=== PATIENT | male | born 1965 | race Two or more races ===

== ENCOUNTER 2016-07-16 15:33 | Inpatient (IN) | payer OTHER ==
[~2016-07-16] VITALS: Ht 172.7 cm; Wt 72.6 kg
[2016-07-16 15:48] VITALS: BP 209/64
[2016-07-16] MEDS ORDERED: Metoclopramide 10mg/2ml Inj IVP ONE (16:00)
[2016-07-16 16:08] LABS: BASOPHILS % (AUTO) 0.9 % (0.0-2.0); EOSINOPHILS % (AUTO) 0.2 % (0.0-3.0); LYMPHOCYTES % (AUTO) 22.9 % (20.0-45.0); MEAN CORPUSCULAR HEMOGLOBIN 27.6 PG (27.0-31.0); MEAN CORPUSCULAR HGB CONC 32.7 G/DL (32.0-36.0); MEAN CORPUSCULAR VOLUME 84 FL (80-99); MEAN PLATELET VOLUME 6.3 FL (6.5-10.1); MONOCYTES % (AUTO) 2.7 % (1.0-10.0); NEUTROPHILS % (AUTO) 73.3 % (45.0-75.0); PLATELET COUNT 345 K/UL (150-450); RED BLOOD COUNT 5.05 M/UL (4.70-6.10); RED CELL DISTRIBUTION WIDTH 13.3 % (11.6-14.8); WHITE BLOOD COUNT 8.6 K/UL (4.8-10.8)
[2016-07-16] MEDS ORDERED: NKM (16:15)
[2016-07-16 16:33] LABS: TROPONIN I < 0.30 ng/mL (<=0.30)
[2016-07-16 16:38] LABS: ALANINE AMINOTRANSFERASE 15 U/L (3-41); ALBUMIN/GLOBULIN RATIO 1.6 (1.0-2.7); ANION GAP 18 (5-15); ASPARTATE AMINO TRANSFERASE 22 U/L (5-40); CALCIUM 7.6 mg/dL (8.6-10.2); CARBON DIOXIDE 20 mEQ/L (20-30); CHLORIDE 102 mEQ/L (98-107); CREATININE 0.6 mg/dL (0.7-1.2); GLOMERULAR FILTRATION RATE > 60 mL/min (>60); HEMOLYSIS 48; POTASSIUM 3.1 mEQ/L (3.4-4.9); SODIUM 140 mEQ/L (135-145)
--- NOTE | 2016-07-16 16:39 | Diagnostic Imaging Report ---
Indication: Shortness of breath Technique: One view of the chest Comparison: none Findings: Lungs and pleural spaces are clear. Heart size is normal. Impression: No acute process
[2016-07-16 16:49] LABS: CKMB < 1.5 ng/mL (< 6.7)
--- NOTE | 2016-07-16 17:19 | Emergency Room Report ---
History of Present Illness General Chief Complaint: General Complaint Source: Patient Present Illness HPI 50-year-old male presents ED complaining of dizziness and weakness x3 days. States his blood pressure is high. Systolic greater than 200. Denies any blurry vision, neck stiffness, nausea or vomiting. Denies chest pain or shortness of breath. Denies smoking or drug use. No other aggravating relieving factors. States he was told he had high blood pressure but has not been started on medication. Has not checked his blood pressure in many months now. Does not have a PMD. Denies any other associated symptom Allergies: Coded Allergies: No Known Allergies (Unverified , 07/16/16) Patient History Past Medical History: HTN Past Surgical History: none Pertinent Family History: none Social History: Denies: alcohol use, drug use, smoking Immunizations: UTD Reviewed Nursing Documentation: PMH: Agreed, PSxH: Agreed Nursing Documentation-PMH Past Medical History: No Stated History Review of Systems All Other Systems: negative except mentioned in HPI Physical Exam Vital Signs Date Time Temp Pulse Resp B/P Pulse Ox O2 Delivery O2 Flow Rate FiO2 07/16/16 15:35 97.5 58 16 212/108 98 Room Air Sp02 EP Interpretation: reviewed, normal General Appearance: no apparent distress, alert, GCS 15, non-toxic Head: normocephalic, atraumatic Eyes: bilateral eye PERRL, bilateral eye normal inspection ENT: hearing grossly normal, normal pharynx, no angioedema, normal voice Neck: full range of motion, supple/symm/no masses Respiratory: chest non-tender, lungs clear, normal breath sounds, speaking full sentences Cardiovascular #1: regular rate, rhythm, no edema Cardiovascular #2: 2+ carotid (R), 2+ carotid (L), 2+ radial (R), 2+ radial (L) , 2+ dorsalis pedis (R), 2+ dorsalis pedis (L) Gastrointestinal: normal bowel sounds, non tender, soft, non-distended, no guarding, no rebound Rectal: deferred Genitourinary: normal inspection, no CVA tenderness Musculoskeletal: back normal, gait/station normal, normal range of motion, non- tender Neurologic: alert, oriented x3, responsive, motor strength/tone normal, sensory intact, speech normal Psychiatric: judgement/insight normal, memory normal, mood/affect normal, no suicidal/homicidal ideation Reflexes: 3+ bicep (R), 3+ bicep (L), 3+ tricep (R), 3+ tricep (L), 3+ knee (R) , 3+ knee (L) Skin: normal color, no rash, warm/dry, well hydrated Lymphatic: no adenopathy Procedures Critical Care Time Critical Care Time i. I feel this is a highly complex case requiring extensive working including EKG/Rhythm strip, Xray/CT/US, Blood/urine lab work, repeat exams while in ED, and administration of strong opiates/narcotics for pain control, admission to hospital or close patient follow up. Total time: 30 min bedside evaluation and treatment excludes procedures (EKG). Reason for critical care: Hypertension urgency Possible complications: hypotension, hypertension, [place], shock, arrhythmias, metabolic acidosis, end organ damage, respiratory failure. Interventions: Labs, EKG, chest x-ray, CT. Ativan. Zofran. Hydralazine Course: Patient here with dizziness, elevated BP. EKG shows no ischemic changes , LVH. CT head unremarkable. Labs obtained. Given hydralazine, Ativan, Zofran. BP improved Consultations: nursing staff, EMS, family Performed by: Dr Alaniz Tolerated well condition = serious j. because of unstable vital signs this patient had a condition that could potentially threaten life or limb. I feel this is a critical patient who required my full attention while patient was considered critical. Total Critical Care Time excluding procedures was greater than 35 minutes Medical Decision Making Diagnostic Impression: Primary Impression: Hypertensive urgency ER Course Hospital Course 50-year-old male presents ED complaining of dizziness, elevated BP Differential diagnoses include: [place]/unstable angina, CVA/TIA, hypertensive urgency Clinical course Patient placed on stretcher. on cardiac surgeon. After initial history and physical I ordered labs, EKG, chest x-ray, CT Head labs reviewed- no leukocytosis, hemoglobin/hematocrit stable, electrolytes okay , troponins negative. Chest x-ray- unremarkable EKG - NSR, LVH noted CT head negative Patient given hydralazine, Ativan, Zofran. On reassessment BP improved. Case discussed with Dr. Doran and he agreed to accept the patient to his service for further care and support I. I feel this is a highly complex case requiring extensive working including EKG/Rhythm strip, Xray/CT/US, Blood/urine lab work, repeat exams while in ED, and administration of strong opiates/narcotics for pain control, admission to hospital or close patient follow up. Diagnosis - hypertensive urgency admitted to telemetry in serious condition Labs Test 07/16/16 15:44 07/16/16 16:56 White Blood Count 8.6 K/UL (4.8-10.8) Red Blood Count 5.05 M/UL (4.70-6.10) Hemoglobin 13.9 G/DL (14.2-18.0) Hematocrit 42.5 % (42.0-52.0) Mean Corpuscular Volume 84 FL (80-99) Mean Corpuscular Hemoglobin 27.6 PG (27.0-31.0) Mean Corpuscular Hemoglobin Concent 32.7 G/DL (32.0-36.0) Red Cell Distribution Width 13.3 % (11.6-14.8) Platelet Count 345 K/UL (150-450) Mean Platelet Volume 6.3 FL (6.5-10.1) Neutrophils (%) (Auto) 73.3 % (45.0-75.0) Lymphocytes (%) (Auto) 22.9 % (20.0-45.0) Monocytes (%) (Auto) 2.7 % (1.0-10.0) Eosinophils (%) (Auto) 0.2 % (0.0-3.0) Basophils (%) (Auto) 0.9 % (0.0-2.0) Sodium Level 140 mEQ/L (135-145) Potassium Level 3.1 mEQ/L (3.4-4.9) Chloride Level 102 mEQ/L (98-107) Carbon Dioxide Level 20 mEQ/L (20-30) Anion Gap 18 (5-15) Blood Urea Nitrogen 9 mg/dL (7-23) Creatinine 0.6 mg/dL (0.7-1.2) Estimat Glomerular Filtration Rate > 60 mL/min (>60) Glucose Level 145 mg/dL (74-106) Calcium Level 7.6 mg/dL (8.6-10.2) Total Bilirubin 0.4 mg/dL (0.0-1.2) Aspartate Amino Transf (AST/SGOT) 22 U/L (5-40) Alanine Aminotransferase (ALT/SGPT) 15 U/L (3-41) Alkaline Phosphatase 50 U/L (40-129) Total Creatine Kinase 63 U/L (38-174) Creatine Kinase MB < 1.5 ng/mL (< 6.7) Creatine Kinase MB Relative Index Troponin I < 0.30 ng/mL (<=0.30) Pro-B-Type Natriuretic Peptide 69 pg/mL (0-125) Total Protein 6.0 g/dL (6.6-8.7) Albumin 3.7 g/dL (3.5-5.2) Globulin 2.3 g/dL Albumin/Globulin Ratio 1.6 (1.0-2.7) EKG Diagnostic Results Rate: normal Rhythm: NSR ST Segments: other - LVH ASA given to the pt in ED: No Rhythm Strip Diag. Results EP Interpretation: yes Rhythm: NSR, no PVC's, no ectopy Chest X-Ray Diagnostic Results EP Interpretation: No Findings: no consolidation, no effusion, no pneumothorax, no acute cardiopulmonary disease Number of Views: 1 CT/MRI/US Diagnostic Results CT/MRI/US Diagnostic Results : Imaging Test Ordered: CT head Impression no acute process Last Vital Signs Date Time Temp Pulse Resp B/P Pulse Ox O2 Delivery O2 Flow Rate FiO2 07/16/16 17:08 220/92 07/16/16 15:48 97.9 60 27 100 Room Air Status: improved Disposition: ADMITTED INPATIENT Condition: Serious Referrals: RADU BARRERA (PCP) MARC ALANIZ M.D. Jul 16, 2016 17:19
[2016-07-16 17:36] LABS: KETONES,URINE 3+ (NEGATIVE); LEUKOCYTE ESTERASE ,URINE NEGATIVE (NEGATIVE); NITRITE,URINE NEGATIVE (NEGATIVE); PH,URINE 5 (4.5-8.0); PROTEIN,URINE 3+ (NEGATIVE); UROBILINOGEN,URINE NORMAL MG/DL (0.0-1.0)
[2016-07-16 17:37] LABS: APPEARANCE,URINE CLEAR
[2016-07-16 17:42] LABS: BACTERIA,URINE FEW /HPF; RBC,URINE 0-2 /HPF (0 - 0); WBC,URINE 0-2 /HPF (0 - 0)
[2016-07-16] MEDS ORDERED: LORazepam Inj 2mg/ml 1ml IV ONE (17:45)
[2016-07-16] MEDS ORDERED: Diazepam 10mg/2ml Inj IV ONE (17:45)
[2016-07-16 17:51] VITALS: BP 181/92
[2016-07-16] MEDS ORDERED: VALIUM2 MG ORAL (18:02)
[2016-07-16 18:43] VITALS: BP 158/90
[2016-07-16 19:00] VITALS: BP 160/107
--- NOTE | 2016-07-16 20:52 | History & Physical ---
History and Physical History & Physicial .[facility] # [id number] FLORA RAE Jul 16, 2016 20:52
[2016-07-16] MEDS: Meclizine 25mg tab ORAL SCH (22:16)
[2016-07-17] VITALS (7 sets, daily range): BP systolic 133–180; BP diastolic 57–108
--- NOTE | 2016-07-17 00:58 | History and Physical Report ---
DATE OF ADMISSION: 07/16/2016 CHIEF COMPLAINT: Vertigo, nausea, and vomiting. HISTORY OF PRESENT ILLNESS: This is a 50-year-old male, who started having severe dizziness yesterday. The patient could not function. He could get only relief when lying down, although even then he would still feel dizzy, but movement of his head was making it worse. He finally was brought into the emergency room via ambulance. His blood pressure was found to be 212/108 upon admission. The patient was admitted with hypertensive urgency. PAST MEDICAL HISTORY: The patient denies any previous history of hypertension. He has not seek any medical attention of any doctor. ALLERGIES: No known drug allergies. SOCIAL HISTORY: The patient smokes a pack of cigarettes every three days. He has been smoking for many years. He drinks occasionally. He smokes marijuana. 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 REVIEW OF SYSTEMS: As above. PHYSICAL EXAMINATION: GENERAL: The patient is a 50-year-old male, in no acute distress. VITAL SIGNS: Blood pressure 202/108, pulse 58, temperature 97.5 degrees, and respiratory rate is 16. HEENT: [place] conjunctivae. Anicteric sclerae. NECK: Supple. LUNGS: Clear to auscultation. HEART: S1 and S2 without murmurs or rubs. ABDOMEN: Soft and nontender. EXTREMITIES: No cyanosis or edema. LABORATORY FINDINGS: The CBC shows a WBC of 8.6, hematocrit is 42.5, hemoglobin is 13.9, and platelets of 245,000. Chemistry panel shows serum sodium 140, potassium 3.1, chloride 102, CO2 20, BUN is 9, creatinine 0.6. Blood sugar is 145. Troponin was negative. ASSESSMENT: This is a 50-year-old male, who was admitted with severe vertigo, nausea, vomiting, and also severe hypertension with hypertensive urgency. PLAN: The patient will be given amlodipine 5 mg daily. I will give the one dose now. The patient will be on IV fluids. Laboratories will be followed closely, specifically potassium and will be repleted as needed. The patient will be on antiemetics and Zofran. PT evaluation will be done. Ezekiel Doran M.D. DR: CRICKET JOB#: [id number] CC:
[2016-07-17] MEDS: Meclizine 25mg tab ORAL SCH ×3 (06:34→22:00)
[2016-07-17 07:37] LABS: ANION GAP 17 (5-15); CALCIUM 8.8 mg/dL (8.6-10.2); CARBON DIOXIDE 23 mEQ/L (20-30); CHLORIDE 98 mEQ/L (98-107); CREATININE 0.7 mg/dL (0.7-1.2); GLOMERULAR FILTRATION RATE > 60 mL/min (>60); HEMOLYSIS 10; POTASSIUM 3.8 mEQ/L (3.4-4.9); SODIUM 138 mEQ/L (135-145)
[2016-07-17] MEDS ORDERED: 1/2 NS 1000ml IV ONE (08:31)
--- NOTE | 2016-07-17 09:47 | General Progress Note ---
Assessment/Plan Problem List: (1) Hypertensive urgency ICD Codes: I16.0 - Hypertensive urgency SNOMED: 452501072 (2) Vertigo ICD Codes: R42 - Dizziness and giddiness SNOMED: 042537409 Assessment/Plan cont IVF cont Antivert Watch BP PT Subjective Allergies: Coded Allergies: No Known Allergies (Unverified , 07/16/16) Subjective feels somewhat better Objective Last 24 Hour Vital Signs Date Time Temp Pulse Resp B/P Pulse Ox O2 Delivery O2 Flow Rate FiO2 07/17/16 08:26 90 169/108 07/17/16 08:00 85 07/17/16 08:00 97.7 90 20 169/108 98 Room Air 07/17/16 04:09 98.5 88 20 157/89 96 Room Air 07/17/16 04:00 95 07/17/16 00:23 98.8 96 21 159/95 97 Room Air 07/17/16 00:00 98 07/16/16 20:22 95 160/91 07/16/16 20:00 91 07/16/16 19:00 97.5 101 18 160/107 98 Room Air 07/16/16 18:50 97.9 90 16 158/90 100 Room Air 07/16/16 18:43 97.9 90 16 158/90 100 Room Air 07/16/16 17:51 97.9 92 18 181/92 100 Room Air 07/16/16 17:08 220/92 07/16/16 15:48 97.9 60 27 209/64 100 Room Air 07/16/16 15:35 97.5 58 16 212/108 98 Room Air Intake and Output 07/16/16 07/17/16 19:00 07:00 Intake Total 1136 ml Output Total 100 ml 350 ml Balance -100 ml 786 ml Intake Oral 480 ml IV Total 656 ml Output Urine Total 100 ml 350 ml # Voids 1 3 Laboratory Tests 07/16/16 15:44: White Blood Count 8.6, Red Blood Count 5.05, Hemoglobin 13.9L, Hematocrit 42.5, Mean Corpuscular Volume 84, Mean Corpuscular Hemoglobin 27.6, Mean Corpuscular Hemoglobin Concent 32.7, Red Cell Distribution Width 13.3, Platelet Count 345, Mean Platelet Volume 6.3L, Neutrophils (%) (Auto) 73.3, Lymphocytes (%) (Auto) 22.9, Monocytes (%) (Auto) 2.7, Eosinophils (%) (Auto) 0.2, Basophils (%) (Auto ) 0.9, Sodium Level 140, Potassium Level 3.1L, Chloride Level 102, Carbon Dioxide Level 20, Anion Gap 18H, Blood Urea Nitrogen 9, Creatinine 0.6L, Estimat Glomerular Filtration Rate > 60, Glucose Level 145H, Calcium Level 7.6L , Total Bilirubin 0.4, Aspartate Amino Transf (AST/SGOT) 22, Alanine Aminotransferase (ALT/SGPT) 15, Alkaline Phosphatase 50, Total Creatine Kinase 63, Creatine Kinase MB < 1.5, Creatine Kinase MB Relative Index , Troponin I < 0.30, Pro-B-Type Natriuretic Peptide 69, Total Protein 6.0L, Albumin 3.7, Globulin 2.3, Albumin/Globulin Ratio 1.6 07/16/16 16:56: Urine Color Yellow, Urine Appearance Clear, Urine pH 5, Urine Specific [place] 1.025, Urine Protein 3+H, Urine Glucose (UA) Negative, Urine Ketones 3+H, Urine Occult Blood 2+H, Urine Nitrite Negative, Urine Bilirubin Negative, Urine Urobilinogen Normal, Urine Leukocyte Esterase Negative, Urine RBC 0-2H, Urine WBC 0-2, Urine Squamous Epithelial Cells None, Urine Bacteria Few, Urine Opiates Screen Negative, Urine Barbiturates Screen Negative, Phencyclidine (PCP ) Screen Negative, Urine Amphetamines Screen Negative, Urine Benzodiazepines Screen Negative, Urine Cocaine Screen Negative, Urine Marijuana (THC) Screen PositiveH 07/17/16 06:15: Sodium Level 138, Potassium Level 3.8, Chloride Level 98, Carbon Dioxide Level 23, Anion Gap 17H, Blood Urea Nitrogen 8, Creatinine 0.7, Estimat Glomerular Filtration Rate > 60, Glucose Level 87, Calcium Level 8.8, Magnesium Level 2.0 Height (Feet): 5 Height (Inches): 8.00 Weight (Pounds): 160 Cardiovascular: normal rate Respiratory/Chest: lungs clear Edema: no edema noted FLORA Llanos Jul 17, 2016 09:47
[2016-07-18 00:08] VITALS: BP 168/82
[2016-07-18 04:10] VITALS: BP 159/95
[2016-07-18] MEDS: Meclizine 25mg tab ORAL SCH ×3 (05:52→21:08)
[2016-07-18 07:44] VITALS: BP 164/107
[2016-07-18 11:24] VITALS: BP 176/110
--- NOTE | 2016-07-18 14:29 | General Progress Note ---
Assessment/Plan Problem List: (1) Hypertensive urgency ICD Codes: I16.0 - Hypertensive urgency SNOMED: 898483571 (2) Vertigo ICD Codes: R42 - Dizziness and giddiness SNOMED: 478669656 Assessment/Plan Dc IVF cont Antivert increase Amlodipine Add chlorthalidone PT discussed with sister Subjective Allergies: Coded Allergies: No Known Allergies (Unverified , 07/16/16) Subjective feels better Objective Last 24 Hour Vital Signs Date Time Temp Pulse Resp B/P Pulse Ox O2 Delivery O2 Flow Rate FiO2 07/18/16 12:00 60 07/18/16 11:24 97.5 79 20 176/110 99 Room Air 07/18/16 08:52 85 164/107 07/18/16 08:00 90 07/18/16 07:44 97.7 85 20 164/107 98 Room Air 07/18/16 04:10 97.6 79 21 159/95 95 Room Air 07/18/16 04:00 67 07/18/16 00:08 98.8 83 20 168/82 97 Room Air 07/18/16 00:00 76 07/17/16 20:00 101 07/17/16 20:00 97.8 67 21 165/95 97 Room Air 07/17/16 16:57 97.7 07/17/16 16:00 97.7 78 20 133/57 98 Room Air 07/17/16 16:00 83 Intake and Output 07/17/16 07/18/16 19:00 07:00 Intake Total 815 ml 1300 ml Output Total 700 ml 800 ml Balance 115 ml 500 ml Intake Oral 440 ml 450 ml IV Total 375 ml 850 ml Output Urine Total 700 ml 800 ml # Voids 1 3 # Bowel Movements 2 Height (Feet): 5 Height (Inches): 8.00 Weight (Pounds): 160 Cardiovascular: normal rate Respiratory/Chest: lungs clear FLORA RAE Jul 18, 2016 14:29
[2016-07-18 16:00] VITALS: BP 184/106
[2016-07-18 20:00] VITALS: BP 187/117
[2016-07-19 00:33] VITALS: BP 174/109
[2016-07-19 04:08] VITALS: BP 167/115
[2016-07-19] MEDS: Meclizine 25mg tab ORAL SCH (06:10)
[2016-07-19 07:58] VITALS: BP 170/106
--- NOTE | 2016-07-19 08:36 | Diagnostic Imaging Report ---
Indication: Dizziness Technique: Continuous helical CT scanning of the head was performed without intravenous contrast material. Axial and coronal 5 mm sections were generated. Radiation dose was minimized using automated exposure control Dose: Total Dose Length Product - DLP [address] Dose Index - CTDIvol(s) 70.38 mGy. Comparison: Findings: The ventricular system is normal in size and configuration. There is no shift of midline structures. No abnormal extra-axial fluid collections are noted. There is no evidence of intracerebral bleeding. No other abnormal high or low density areas are noted within the brain. There is minimal ethmoid sinus mucosal disease. Impression: Normal CT scan of the head without contrast material. The CT scanner at [facility] is accredited by the [employer] and the scans are performed using protocols designed to limit radiation exposure to as low as reasonably achievable to attain images of sufficient resolution adequate for diagnostic evaluation.
[2016-07-19 09:28] VITALS: BP 170/106
[2016-07-19] MEDS ORDERED: MECLIZINE HCL25 MG ORAL (09:58)
[2016-07-19] MEDS ORDERED: CHLORTHALIDONE25 MG ORAL (09:58)
[2016-07-19] MEDS ORDERED: NORVASC5 MG ORAL (09:58)
--- NOTE | 2016-07-19 10:03 | Consultation ---
Consult Note Assessment/Plan Dc dictated #[id number] FLORA RAE Jul 19, 2016 10:03
[2016-07-19] MEDS ORDERED: LEXAPRO10 MG ORAL (10:36)
--- NOTE | 2016-07-19 22:18 | Discharge Summary ---
DATE OF ADMISSION: 07/16/2016 DATE OF DISCHARGE: 07/19/2016 CHIEF COMPLAINT: Vertigo. HISTORY: This is a very pleasant 50-year-old male, who was admitted with nausea, vomiting and vertigo. Also he was found to have a high blood pressure 212/108 upon admission and diagnosis of hypertensive urgency. HOSPITAL COURSE: The patient was started on Antivert, IV fluids for his blood pressure. He was started on amlodipine 5 mg daily. Amlodipine was increased to 5 mg twice a day and also chlorthalidone was added. His blood pressure still remained elevated at 170/106, but it was felt that it was adequate to control for the time being until later when the patient would need to have a repeat blood pressure check and decrease the medications as needed. The patient's dizziness improved significantly and finally he was discharged home in stable condition. He is supposed to follow up with me in the office to address his blood pressure and to see if he can go back to work. He was still on Antivert at the time of discharge. DISCHARGE DIAGNOSES: 1. Vertigo, likely as a vestibular dysfunction. 2. Hypertensive urgency. Ezekiel Doran M.D. DR: ESE JOB#: [id number] CC:
--- NOTE | 2016-07-21 23:45 | Cardiology Report ---
APPROVED REPORT EKG Measurement Heart [id number] Normal sinus rhythm Voltage criteria for left ventricular hypertrophy Abnormal ECG
== END 2016-07-19 11:35 | disposition home or self-care (01) | DRG 305 ==
LOC: EDBD 15:33 → EMR 16:26 → 2E 17:32 → EDBEDREQ 18:25
DX: I16.0 Hypertensive urgency (principal); F17.200 Nicotine dependence, unspecified, uncomplicated; R42 Dizziness and giddiness
CPT/HCPCS: 36415; 70450; 71010; 80048; 80053; 80300; 81003; 82550; 82553; 83735; 83880; 84484; 85025; 93005; J2405; J2765; J8499

== ENCOUNTER 2017-02-03 10:28 | Outpatient (CLI) | payer OTHER ==
[~2017-02-03 10:28] MED LIST: CHLORTHALIDONE25 MG ORAL; LEXAPRO10 MG ORAL; MECLIZINE HCL25 MG ORAL; NKM; NORVASC5 MG ORAL; VALIUM2 MG ORAL
[2017-02-03 10:53] LABS: BASOPHILS % (AUTO) 1.1 % (0.0-2.0); LYMPHOCYTES % (AUTO) 32.5 % (20.0-45.0); MEAN CORPUSCULAR HEMOGLOBIN 28.7 PG (27.0-31.0); MEAN CORPUSCULAR HGB CONC 33.8 G/DL (32.0-36.0); MEAN CORPUSCULAR VOLUME 85 FL (80-99); MONOCYTES % (AUTO) 7.6 % (1.0-10.0); NEUTROPHILS % (AUTO) 56.7 % (45.0-75.0); PLATELET COUNT 413 K/UL (150-450); RED CELL DISTRIBUTION WIDTH 13.5 % (11.6-14.8); WHITE BLOOD COUNT 6.3 K/UL (4.8-10.8)
[2017-02-03 11:29] LABS: PSA TOTAL 1.5 ng/mL (< 3.5)
[2017-02-03 11:40] LABS: ALANINE AMINOTRANSFERASE 29 U/L (3-41); ALBUMIN/GLOBULIN RATIO 1.6 (1.0-2.7); ANION GAP 12 (5-15); ASPARTATE AMINO TRANSFERASE 22 U/L (5-40); CALCIUM 9.4 mg/dL (8.6-10.2); CARBON DIOXIDE 30 mEQ/L (20-30); CHLORIDE 98 mEQ/L (98-107); CHOLESTEROL 192 mg/dL (< 200); CHOLESTEROL/HDL RATIO 3.2 (3.3-4.4); CREATININE 0.8 mg/dL (0.7-1.2); GLOMERULAR FILTRATION RATE > 60 mL/min (>60); HEMOLYSIS 3; LDL CHOLESTEROL (CALC.) 114 mg/dL (60-99); POTASSIUM 3.6 mEQ/L (3.4-4.9); SODIUM 140 mEQ/L (135-145); TOTAL PROTEIN 7.3 g/dL (6.6-8.7)
== END 2017-02-03 12:28 | disposition home or self-care (01) ==
LOC: LAB 10:28
DX: I10 Essential (primary) hypertension (principal)
CPT/HCPCS: 36415; 80053; 80061; 84153; 85025

== ENCOUNTER 2017-08-08 12:07 | Emergency (ER) | payer OTHER ==
[~2017-08-08] VITALS: Ht 160 cm; Wt 63.5 kg
[2017-08-08] MEDS ORDERED: Bacitracin Oint UD TOPIC ONE (13:15)
--- NOTE | 2017-08-08 13:26 | Emergency Room Report ---
History of Present Illness General Chief Complaint: Multiple Trauma/Fall Source: Patient Present Illness HPI 51 YO Male presents to the ED c/o 09/29 in severity left knee pain with abrasion s/p syncopal episode. Pain exacerbated with palpation. Patient states that he had just gotten up from his desk and walked down the [place] to the elevator and just before getting into the elevator is 1 syncopal episode occurred. Patient denies precipitating symptoms such as dizziness or lightheadedness. Patient denies nausea, vomiting.or diarrhea. denies abdominal pain. denies significant cardiac hx or hx of sudden in his family. Patient states that this happened once in the past and he was evaluated for which is uneventful. Pt. denies fatigue, hx of bleeding or anemia. Pt. reports only PMHx of HTN. Denies CP, Palpitations, LOC, AMS, Changes in Vision, Sensation, paresthesias, or a sudden severe headache. Allergies: Coded Allergies: No Known Allergies (Unverified , 07/16/16) Patient History Past Medical History: see triage record Past Surgical History: none Pertinent Family History: none Reviewed Nursing Documentation: PMH: Agreed, PSxH: Agreed Nursing Documentation-PMH Past Medical History: No History, Except For Hx Hypertension: Yes Hx Cancer: No Hx Gastrointestinal Problems: No Hx Neurological Problems: No Review of Systems All Other Systems: negative except mentioned in HPI Physical Exam Vital Signs Date Time Temp Pulse Resp B/P (MAP) Pulse Ox O2 Delivery O2 Flow Rate FiO2 08/08/17 12:23 98.1 81 18 147/89 95 Room Air 98.1 Sp02 EP Interpretation: reviewed, normal General Appearance: no apparent distress, alert, GCS 15, non-toxic Head: normocephalic, atraumatic Eyes: bilateral eye normal inspection, bilateral eye PERRL ENT: hearing grossly normal, normal voice Neck: full range of motion, no bony tend Respiratory: chest non-tender, lungs clear, normal breath sounds, no respiratory distress, no wheezing, speaking full sentences Cardiovascular #1: regular rate, rhythm, no edema, normal capillary refill Gastrointestinal: non tender, soft Musculoskeletal: back normal, gait/station normal, normal range of motion, tender - TTP to the anterior Left knee, abrasion noted. FROM , no increased laxity, able to weight bear. Neurologic: alert, oriented x3, responsive, motor strength/tone normal, sensory intact, speech normal, grossly normal Psychiatric: judgement/insight normal Skin: normal color, no rash, warm/dry, well hydrated, abrasions - anterior left knee. Lymphatic: no adenopathy Medical Decision Making PA Attestation Dr. Mccabe is my supervising Physician whom patient management has been discussed with. Diagnostic Impression: Primary Impression: Syncope Qualified Codes: R55 - Syncope and collapse Additional Impressions: Knee abrasion Qualified Codes: S80.212A - Abrasion, left knee, initial encounter Knee pain, left Qualified Codes: M25.562 - Pain in left knee ER Course 51 YO Male presents to the ED c/o 09/29 in severity left knee pain with abrasion s/p syncopal episode. Pain exacerbated with palpation. Patient states that he had just gotten up from his desk and walked down the [place] to the elevator and just before getting into the elevator is 1 syncopal episode occurred. Patient denies precipitating symptoms such as dizziness or lightheadedness. Patient denies nausea, vomiting.or diarrhea. denies abdominal pain. denies significant cardiac hx or hx of sudden in his family. Patient states that this happened once in the past and he was evaluated for which is uneventful. Pt. denies fatigue, hx of bleeding or anemia. Pt. reports only PMHx of HTN. Denies CP, Palpitations, LOC, AMS, Changes in Vision, Sensation, paresthesias, or a sudden severe headache. Ddx considered but are not limited to dysrhythmia, hypoglycemia, hypovolemia, , intracranial process, vasovagal , contusion, abrasions, fracture/ dislocation just to name a few. Vital signs: are WNL, pt. is afebrile H&PE are most consistent with hx of syncopal episode and knee contusion with abrasion. No current symptoms other than knee tenderness, no obvious head injury , normal neurological exam. ORDERS: -Accu Check: 84 -12-lead EK NSR -Orthostatic: Normal INTERVENTIONS: - wound cleaning and application of bacitracin. PT. reports other than knee pain feeling fine, pt. is stable for close outpatient follow up . gave strict ED return precautions. DISCHARGE: At this time pt. is stable for d/c to home. Will provide printed patient care instructions, and any necessary prescriptions. Care plan and follow up instructions have been discussed with the patient prior to discharge. EKG Diagnostic Results EP Interpretation: Dr. Mccabe Rate: normal - 64 Rhythm: NSR ST Segments: no acute changes ASA given to the pt in ED: No PA Scribe Text This Interpretation was scribed by SHYAM Crowley. Other X-Ray Diagnostic Results Other X-Ray Diagnostic Results : X-Ray ordered: Left knee # of Views/Limited Vs Complete: 3 View Indication: Pain PA Xray: Interpretation reviewed, by supervising MD, and agrees with findings. Interpretation: no dislocation, no soft tissue swelling, no fractures Impression: No acute disease Electronically Signed by: Elidia Crowley PA-C Last Vital Signs Date Time Temp Pulse Resp B/P (MAP) Pulse Ox O2 Delivery O2 Flow Rate FiO2 08/08/17 12:23 98.1 81 18 147/89 95 Room Air 98.1 Disposition: HOME, SELF-CARE Condition: Stable Scripts Bacitracin/Polymyxin B Sulfate (BACITRACIN-POLYMYXIN OINTMENT) 28.35 Gm Oint...g. 1 APPLIC TP BID, #28.3 GM Prov: Elidia Crowley 08/08/17 Acetaminophen* (TYLENOL EXTRA STRENGTH*) 500 Mg Tablet 500 MG ORAL Q6H, #20 TAB 0 Refills Prov: Elidia Crowley 08/08/17 Patient Instructions: Syncope, Ubrz-dv-Poun Additional Instructions: Take medications as directed. Follow up with a Primary Care Provider within 3 days, even if your symptoms have resolved. let your primary care provider know that you had a syncopal episode. --Please review list of primary care clinics, if you do not already have a primary care provider. You may need technical maintenance technician evaluation. Return sooner to ED if new symptoms occur, or current symptoms become worse. - Please note that this Emergency Department Report was dictated using [employer]/prosthetic practitioner technology software, occasionally this can lead to erroneous entry secondary to interpretation by the dictation equipment. Elidia Crowley Aug 08, 2017 13:26
[2017-08-08 13:37] VITALS: BP_SYST 137; BP_SYST 145; BP_DIAS 88; BP_DIAS 93
[2017-08-08] MEDS ORDERED: TYLENOL EXTRA500 MG ORAL (13:56)
[2017-08-08] MEDS ORDERED: BACITRACIN-P28.35 GM TP (13:56)
[2017-08-08 14:11] VITALS: BP 137/88
[2017-08-08 14:13] VITALS: BP 137/88
--- NOTE | 2017-08-08 17:47 | Diagnostic Imaging Report ---
Indication: Knee pain Technique: 3 views of the left knee Comparison: None Findings: There is a small superior pole patellar osteophyte. Bones are somewhat osteoporotic. No acute fractures. No dislocations. Impression: Possible osteoporotic change. Correlate with clinical history and findings No acute bony trauma Minimal degenerative changes as described
--- NOTE | 2017-08-09 18:37 | Cardiology Report ---
APPROVED REPORT EKG Measurement Heart [id number] Normal sinus rhythm Moderate voltage criteria for LVH, may be normal variant Borderline ECG
== END 2017-08-08 14:13 | disposition home or self-care (01) ==
LOC: EMR 13:03
DX: S80.212A Abrasion, left knee, initial encounter (principal); R55 Syncope and collapse; I10 Essential (primary) hypertension; M25.562 Pain in left knee; W18.39XA Other fall on same level, initial encounter; Y92.9 Unspecified place or not applicable
CPT/HCPCS: 82962; 93005; 99284

== ENCOUNTER 2019-05-15 08:24 | Outpatient (CLI) | payer OTHER ==
[~2019-05-15 08:24] MED LIST changes: +BACITRACIN-P28.35 GM TP; +TYLENOL EXTRA500 MG ORAL
[2019-05-15 08:45] LABS: APPEARANCE,URINE CLEAR; BILIRUBIN, URINE NEGATIVE (NEGATIVE); COLOR,URINE PALE YELLOW; GLUCOSE, URINE (UA) NEGATIVE (NEGATIVE); KETONES,URINE NEGATIVE (NEGATIVE); LEUKOCYTE ESTERASE ,URINE NEGATIVE (NEGATIVE); NITRITE,URINE NEGATIVE (NEGATIVE); PH,URINE 5 (4.5-8.0); PROTEIN,URINE NEGATIVE (NEGATIVE); UROBILINOGEN,URINE NORMAL MG/DL (0.0-1.0)
[2019-05-15 09:22] LABS: BASOPHILS % (AUTO) 1.2 % (0.0-2.0); EOSINOPHILS % (AUTO) 2.5 % (0.0-3.0); HEMATOCRIT 44.5 % (42.0-52.0); HEMOGLOBIN 14.6 G/DL (14.2-18.0); LYMPHOCYTES % (AUTO) 35.1 % (20.0-45.0); MEAN CORPUSCULAR VOLUME 83 FL (80-99); MONOCYTES % (AUTO) 6.3 % (1.0-10.0); PLATELET COUNT 439 K/UL (150-450); RED BLOOD COUNT 5.39 M/UL (4.70-6.10); RED CELL DISTRIBUTION WIDTH 13.1 % (11.6-14.8); WHITE BLOOD COUNT 5.8 K/UL (4.8-10.8)
[2019-05-15 09:38] LABS: ALANINE AMINOTRANSFERASE 28 U/L (12-78); ALBUMIN 3.9 G/DL (3.4-5.0); ALKALINE PHOSPHATASE 60 U/L (46-116); ANION GAP 7 mmol/L (5-15); ASPARTATE AMINO TRANSFERASE 15 U/L (15-37); BILIRUBIN,TOTAL 0.3 MG/DL (0.2-1.0); BLOOD UREA NITROGEN 14 mg/dL (7-18); CALCIUM 9.3 MG/DL (8.5-10.1); CARBON DIOXIDE 33 MMOL/L (21-32); CHLORIDE 103 MMOL/L (98-107); CHOLESTEROL 179 MG/DL (< 200); CREATININE 0.8 MG/DL (0.55-1.30); HDL CHOLESTEROL 47 MG/DL (40-60); POTASSIUM 3.4 MMOL/L (3.5-5.1); SODIUM 143 MMOL/L (136-145); TRIGLYCERIDES 118 MG/DL (30-150)
== END 2019-05-15 10:24 | disposition home or self-care (01) ==
LOC: LAB 08:24
DX: I10 Essential (primary) hypertension (principal)
CPT/HCPCS: 36415; 80053; 80061; 81003; 83036; 84443; 85025

== ENCOUNTER → 2019-06-21 | Day surgery (SDC) | payer OTHER ==
[~2019-06-21] VITALS: Ht 160 cm; Wt 61.2 kg
[2019-06-21] VITALS (8 sets, daily range): BP systolic 118–135; BP diastolic 67–89
[~2019-06-21] MED LIST changes: +AMLODIPINE BESY10 MG ORAL; +LR 1000ml 1,000 ML IVLG SCH; +LR 1000ml ONE; +Midazolam 2mg/2ml Inj ONE; +Propofol 200mg/20ml IV ONE; +fentaNYL 100 mcg/2 mL IV ONE; +fentaNYL 100 mcg/2 mL IV PRN
--- NOTE | 2019-06-21 08:34 | Anethesia Preoperative Eval ---
Anesthesia Pre-op PMH/ROS General Date of Evaluation: Jun 21, 2019 Time of Evaluation: 08:31 Anesthesiologist: Tyler ASA Score: ASA 2 Mallampati Score Class I : Soft palate, uvula, fauces, pillars visible Class II: Soft palate, uvula, fauces visible Class III: Soft palate, base of uvula visible Class IV: Only hard plate visible Mallampati Classification: Class II Surgeon: Benita Diagnosis: Abdominal pain Surgical Procedure: Colonoscopy Anesthesia History: none Family History: no anesthesia problems Allergies: Coded Allergies: CODEINE (Verified Adverse Reaction, Severe, vomiting, 06/21/19) Medications: see eMAR Patient NPO?: Yes Past Medical History Cardiovascular: Reports: HTN; Denies: CAD, IL, valve dz, arrhythmia, other Pulmonary: Denies: asthma, COPD, LAURIE, other Gastrointestinal/Genitourinary: Reports: GERD; Denies: CRI, ESRD, other Neurologic/Psychiatric: Denies: dementia, CVA, depression/anxiety, TIA, other Endocrine: Denies: DM, hypothyroidism, steroids, other HEENT: Denies: cataract (L), cataract (R), glaucoma, TEJON (L), TEJON (R), other Hematology/Immune: Denies: anemia, DVT, bleeding disorder, other Musculoskeletal/Integumentary: Denies: OA, RA, DJD, DDD, edema, other PMH Narrative: as above PSxH Narrative: See chart Anesthesia Pre-op Phys. Exam Physician Exam Last Vital Signs Date Time Temp Pulse Resp B/P (MAP) Pulse Ox O2 Delivery O2 Flow Rate FiO2 06/21/19 08:16 Room Air 06/21/19 08:14 97.7 73 18 135/89 98 Constitutional: NAD Neurologic: CN 2-12 intact Cardiovascular: RRR, no M/R/G Respiratory: CTA Gastrointestinal: S/NT/ND Airway Exam Mallampati Score: Class II MO: full Neck: flexible` ROM: full Teeth: intact Dentures: no upper, no lower Anesthesia Pre-op A/P Risk Assessment & Plan Assessment: ASA 2 Plan: MAC Status Change Before Surgery: No Terry Scott MD Jun 21, 2019 08:34
--- NOTE | 2019-06-21 09:15 | Pre-Procedure Note/Attestation ---
Pre-Procedure Note/Attestation Complete Prior to Procedure Planned Procedure: not applicable Procedure Narrative: colon Indications for Procedure Pre-Operative Diagnosis: screen Attestation I attest that I discussed the nature of the procedure; its benefits; risks and complications; and alternatives (and the risks and benefits of such alternatives ), prior to the procedure, with the patient (or the patient's legal promotional representative). I attest that, if there was a reasonable possibility of needing a blood transfusion, the patient (or the patient's legal promotional representative) was given the [facility] standardized written summary, pursuant to the Danny Nav Blood Safety Act ([place] Health and Safety Code # 1645, as amended). I attest that I re-evaluated the patient just prior to the surgery and that there has been no change in the patient's H&P, except as documented below: Adilene Mohamud MD Jun 21, 2019 09:15
--- NOTE | 2019-06-21 09:15 | Short Stay Surgery H&P ---
History of Present Illness History of Present Illness Chief Complaint see typed H&P HPI Scooby Mcgowan is a 53 year old male who was admitted on for Colon Screening Patient History Allergies: Coded Allergies: CODEINE (Verified Adverse Reaction, Severe, vomiting, 06/21/19) Medication History Scheduled Amlodipine Besylate* (Amlodipine Besylate*), 10 MG ORAL DAILY, (Reported) Chlorthalidone* (Chlorthalidone*), 25 MG ORAL DAILY Discontinued Medications Acetaminophen* (Tylenol Extra Strength*), 500 MG ORAL Q6H Discontinued Reason: Pt stopped taking med Amlodipine Besylate (Norvasc), 5 MG ORAL Q12HR Discontinued Reason: Pt stopped taking med Bacitracin/Polymyxin B Sulfate (Bacitracin-Polymyxin Ointment), 1 APPLIC TP BID Discontinued Reason: Pt stopped taking med Escitalopram Oxalate* (Lexapro*), 10 MG ORAL DAILY, (Reported) Discontinued Reason: Pt stopped taking med Meclizine Hcl* (Meclizine*), 25 MG ORAL EVERY 8 HOURS Discontinued Reason: Pt stopped taking med Physical Exam Vital Signs Last Vital Signs Date Time Temp Pulse Resp B/P (MAP) Pulse Ox O2 Delivery O2 Flow Rate FiO2 06/21/19 08:16 Room Air 06/21/19 08:14 97.7 73 18 135/89 98 Plan Attestation Are the patient's medical conditions optimized for surgery? Adilene Mohamud MD Jun 21, 2019 09:15
--- NOTE | 2019-06-21 09:59 | Immediate Post-Op Evaluation ---
Immediate Post-Op Evalulation Immediate Post-Op Evalulation Procedure: Colonoscopy polypectomy Date of Evaluation: Jun 21, 2019 Time of Evaluation: 09:57 IV Fluids: 700 Blood Products: none Estimated Blood Loss: none Urinary Output: none Blood Pressure Systolic: 126 Blood Pressure Diastolic: 74 Pulse Rate: 68 Respiratory Rate: 20 O2 Sat by Pulse Oximetry: 99 Temperature (Fahrenheit): 97.4 Pain Score (1-10): 1 Nausea: No Vomiting: No Complications none Patient Status: awake, patent, none Hydration Status: adequate Terry Scott MD Jun 21, 2019 09:58
--- NOTE | 2019-06-21 10:23 | 48 Hour Post Anesthesia Eval ---
Post Anesthesia Evaluation Procedure: Colonoscopy polypectomy Date of Evaluation: Jun 21, 2019 Time of Evaluation: 10:21 Blood Pressure Systolic: 132 0: 58 Pulse Rate: 74 Respiratory Rate: 20 Temperature (Fahrenheit): 97.6 O2 Sat by Pulse Oximetry: 98 Airway: patent Nausea: No Vomiting: No Pain Intensity: 1 Hydration Status: adequate Cardiopulmonary Status: stable Mental Status/LOC: patient returned to baseline Follow-up Care/Observations: n/a Post-Anesthesia Complications: none Follow-up care needed: ready to discharge Terry Scott MD Jun 21, 2019 10:23
--- NOTE | 2019-06-21 10:57 | Endoscopy Procedure Note ---
Endoscopy Procedure Note General Indication for Procedure: screen Procedures Performed: colonoscopy Operative Findings/Diagnosis: colon polypx2, dim and 1. Specimen: yes Anesthesia Anesthesiologist: Sumit Anesthesia: MAC Inserted Devices Implant(s) used?: No GI Core Measures 50 yrs or older w/o bx or poly: No 10yrs. F/U recommended: No If not recommended, why?: Above average risk 18 years or older w/prev. colo: No <3yrs. since last colonoscopy: No Med reason:<3 yrs.: System Reason:<3 yrs.: Last colonoscopy >= to 3yrs: Yes Adilene Mohamud MD Jun 21, 2019 10:57
--- NOTE | 2019-06-21 10:58 | Brief Operative Note ---
Immediate Post Operative Note Operative Note Chief Complaint: screen Pre-op Diagnosis: screen Procedure: colon polyps Post-op Diagnosis: polyps Surgeon: mika Anesthesiologist: lonnie Specimen: yes Complications: none Condition: stable Fluids: see aneshesia Implant(s) used?: No Adilene Mohamud MD Jun 21, 2019 10:58
--- NOTE | 2019-06-21 18:30 | Operative Note - Dictated ---
PROCEDURE: Screening colonoscopy. SURGEON: Adilene Mohamud M.D. ANESTHESIA: Please see the separate anesthesiologist notes for details. PRE-ENDOSCOPIC DIAGNOSIS: Screening colonoscopy. POST-ENDOSCOPIC DIAGNOSES: 1. Normal terminal ileum to about 5 cm. 2. A 1.5 cm pedunculated polyp with a short stalk seen in the descending colon at 35 cm. 3. The above polyp was injected with saline and then a hot snare polypectomy was done and the specimen was removed. 4. Biopsies of the base of the polyp to remove a small amount of residual polyp like tissue. 5. A diminutive cystic polyp in the descending colon at 35 cm status post biopsy removal. 6. Mild sigmoid diverticulosis. 7. Anal papilla felt on examination and confirmed on retroflexed view of the rectum. 8. Status post Brittany ink injection in the descending colon at 35 cm. DESCRIPTION OF PROCEDURE: The procedure, its risks, indications, alternatives, and possible complications were explained to the patient and informed consent was obtained. The patient was then sedated in the left lateral decubitus position and a rectal exam was done, which revealed the small polypoid anal lesion. The colonoscope was then introduced per rectum and retroflexed view of the rectum revealed a small polypoid hypertrophic papilla. The colonoscope was advanced all the way to 5 cm into the terminal ileum. The terminal ileum and the right colon were normal. In the descending colon at 75 cm, there was a pedunculated 1.5 cm polyp on a short stalk, which was first injected with saline to raise it and then removed with a snare polypectomy. There was a very small amount of polyp like tissue noted at the base. The excised polyp was removed and placed in the container jar and the colonoscope was reintroduced into the rectum and advanced to 35 cm catherine. The base of the polypectomy site was biopsied and made clear of any remaining tissue. All specimens were sent in the same bottle to pathology. A few centimeters away from this main polyp, there was a much smaller diminutive sister polyp which was removed with a biopsy forceps and placed in a separate jar. Brittany ink was injected across the polypectomy sites to catherine for future evaluation. There was mild sigmoid diverticulosis and the rest of the examination was unremarkable. The patient was sent to recovery in good condition. COMPLICATIONS: None. RECOMMENDATIONS: 1. Follow up biopsy results. 2. High-fiber diet. 3. Outpatient followup. 4. Repeat colonoscopy in 6 months to evaluate polypectomy site for completion. Thank you for asking me to participate in the care this patient. Adilene Mohamud M.D. DR: SWATHI JOB#: [id number] CC: Ezekiel Doran M.D.; Fax#: [phone]
== END | disposition home or self-care (01) ==
LOC: GAS 07:40
DX: Z12.11 Encounter for screening for malignant neoplasm of colon (principal); K63.5 Polyp of colon; K57.90 Diverticulosis of intestine, part unspecified, without perforation or abscess without bleeding; D12.4 Benign neoplasm of descending colon; Z88.6 Allergy status to analgesic agent; I10 Essential (primary) hypertension; K21.9 Gastro-esophageal reflux disease without esophagitis
CPT/HCPCS: 45380; 45381; 45385; J2250; J2704; J3010; J7120; 94003; 94150